=== PATIENT | male | born 1975 | race African-American/Black ===

== ENCOUNTER 2020-11-03 17:35 | Emergency (ER) | payer SELFPAY ==
[2020-11-03] MEDS ORDERED: LORazepam 2 MG/ML VIAL ONE (17:57)
[2020-11-03 18:14] LABS: Absolute Lymphocytes (CBC) 5.6 K/uL (0.7-4.9); Basophils % 0.9 % (0-1.3); Hematocrit 39.4 % (39.6-49.0); Lymphocytes % 59.6 % (15.3-44.8); MPV 8.4 fL (7.6-11.3); RBC Red Blood Cell Count 4.72 M/uL (4.33-5.43)
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
[2020-11-03 18:33] LABS: Protime INR 0.94
[2020-11-03 18:48] LABS: ALT/SGPT 29 U/L (12-78); AST/SGOT 19 U/L (15-37); Albumin 3.9 g/dL (3.4-5.0); Alkaline Phosphatase 47 U/L (45-117); BUN Blood Urea Nitrogen 14 mg/dL (7-18); Bicarbonate 25 mmol/L (21-32); Bilirubin Direct < 0.1 mg/dL (0-0.2); Bilirubin Total 0.2 mg/dL (0.2-1.0); Glucose Level 139 mg/dL (74-106); Potassium 3.2 mmol/L (3.5-5.1); Protein, Total 8.2 g/dL (6.4-8.2); Sodium Level 143 mmol/L (136-145)
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
[2020-11-03 21:27] VITALS: BP 131/106; O2SAT 100
[2020-11-03 21:28] VITALS: TEMP 98.3
== END 2020-11-03 19:26 | disposition left against medical advice (07) ==
LOC: ER 17:35
DX: S13.120A Subluxation of C1/C2 cervical vertebrae, initial encounter (principal); V48.5XXA Car driver injured in noncollision transport accident in traffic accident, initial encounter
CPT/HCPCS: 85025; 80048; 36415; 80320; 80329; 85610; 80076; 85730; 70450; 72125; 71260; 74177; Q9967; 96374; 99284